=== PATIENT | female | born 1985 | race African-American/Black ===

== ENCOUNTER 2020-05-05 21:32 | Emergency (ER) | payer SELFPAY ==
[~2020-05-05 21:32] MED LIST: Iopamidol 370 76% 100 ML VIAL ONE
[2020-05-05] MEDS ORDERED: Ketorolac Tromethamine 30 MG/ML VIAL ONE (22:12)
[2020-05-05] MEDS ORDERED: Ondansetron PF 4 MG/2 ML Vial ONE (22:12)
[2020-05-05] MEDS ORDERED: Fentanyl 100 MCG/2 ML VIAL ONE (22:13)
[2020-05-05 22:19] LABS: Band 2 % (5-11); Hemoglobin 9.9 g/dL (12.0-16.0); Lymphocytes 21 % (21-51); MDiff Complete? YES; Mean Corpuscular HGB CONC 33.1 g/dL (32.0-36.0); Mean Corpuscular Hemoglobin 29.2 pg (27.0-31.0); Mean Corpuscular Volume 88.3 fL (78.0-98.0); Mean Platelet Volume 6.8 fL (7.4-10.4); Monocytes 17 % (0-10); Neutrophil 60 % (42-75); Platelet Count 248 thou/uL (130-400); Platelet Morphology Comment Appears Adequate; RBC Distribution Width 11.9 % (11.5-14.5)
[2020-05-05 22:27] LABS: BHCG - Serum Negative (NEGATIVE); Pregs Control Background? CLEAR/WHITE (CLR/WHITE); Pregs Control Bar Appear? YES (CONTROL BAR)
[2020-05-05 22:38] LABS: ALT (SGPT) Less than 7 U/L (8-55); AST (SGOT) 12 U/L (5-34); Albumin 3.8 g/dL (3.5-5.0); Alkaline Phosphatase 64 U/L (40-110); Anion Gap 10 mmol/L (10-20); BUN (Urea Nitrogen) 12 mg/dL (7.0-18.7); Bilirubin, Total 0.2 mg/dL (0.2-1.2); CK (CPK) 84 U/L (29-168); Calc. Creatinine Clearance 0 mL/min (70-130); Calcium 8.3 mg/dL (7.8-10.44); Carbon Dioxide 22 mmol/L (22-29); Chloride 104 mmol/L (98-107); Estimated GFR-MDRD 81; Globulin 3.5 g/dL (2.4-3.5); Glucose 102 mg/dL (70-105); Lipase 34 U/L (8-78); Potassium 3.2 mmol/L (3.5-5.1); Protein, Total 7.3 g/dL (6.0-8.3); Sodium 133 mmol/L (136-145)
--- NOTE | 2020-05-05 23:18 | CT ---
CT ABDOMEN AND PELVIS WITH IV CONTRAST 05/05/2020 CLINICAL INFORMATION: Right flank pain. COMPARISON: None. Technique: Multiple contiguous axial CT images are obtained through the abdomen and pelvis with IV contrast. Cor onal reformatted images are provided. FINDINGS: Lower Chest: Lung bases are clear. Vessels: Abdominal aorta is normal in caliber without evidence of an aortic dissection. Is still note is made of a circumaortic left renal vein. Abdomen: Portal vein:Patent Gallbladder: Within normal limits for CT imaging. Liver: within normal limits. Spleen: within normal limits. Pancreas: within normal limits. Adrenals: within normal limits. Kidneys: An 11 mm hypodense lesion is seen midportion right kidney which is difficult to characterize . This finding was present on study in 2005 and measured 8 mm. This statistically likely represents a renal cyst. Bowel: Small to moderate amount retained fecal material is seen throughout the colon. Loops of small bowel are normal in caliber. There is suggested mild thickening region of the gastric antrum. This could be related to gastritis or ulcer disease, this may be related to incomplete distention. Appendix: Not defined visualized due to multiple adjacent unopacified structures. Peritoneum/Retroperitoneum: Small amount of free fluid is seen in the pelvis. Abdominal Wall: within normal limits. Pelvis: Reproductive Organs: There is an irregular hypodense cystic appearing lesion with enhancing reveles david suring 19 mm seen in the right adnexa. This could be related to involuting cyst or possibly secondary to ruptured cyst as there is free fluid adjacent to this region as well as in the left adne xa and in the lower pelvis. Pelvis within normal limits. Bladder: within normal limits. Bones: No suspicious lytic or sclerotic osseous lesions are identified. Transitional vertebra is pres ent lumbosacral junction. IMPRESSION: 1. Small amount of free fluid in the pelvis. There is a hypodense lesion with irregular enhancing wal l seen in the right adnexa which could potentially represent involuting cyst/follicle versus rupture of a cyst or follicle. 2. Hypodense lesion right kidney difficult to characterize due to small size but statistically likely represents a cyst. 3. Small to moderate amount retained fecal material seen throughout the colon suggesting constipation . 4. Nonvisualization of the appendix due to multiple unopacified structures in the pelvis. Appendiciti s cannot be excluded based on this examination. 5. Suggested thickening in the region of the gastric antrum. This is probably attributable to incompl ete distention. However, if the patient has symptoms referrable to the epigastric region, follow-up upper GI versus endoscopy is suggested.
[2020-05-06 00:16] LABS: Bilirubin Negative (Negative); Blood, Urine Negative (Negative); Clarity Clear (Clear); Glucose, Urine (Dipstick) Normal (Negative); Leukocyte Negative Leu/uL (Negative); Nitrite Negative (Negative); Protein, Urine (Dipstick) Negative (Neg-Trace); Urobilinogen Normal mg/dL (Less than 2)
--- NOTE | 2020-05-09 14:53 | EKG ---
Test Reason : Blood Pressure : / mmHG Vent. Rate : 091 BPM Atrial Rate : 091 BPM P-R Int : 126 ms QRS Dur : 068 ms QT Int : 340 ms P-R-T Axes : 059 069 005 degrees QTc Int : 418 ms Normal sinus rhythm Cannot rule out Anterior infarct , age undetermined Abnormal ECG Confirmed by PETRA RAMOS, VIVIAN ([id number]), graphics editor CLAUDY SELBY ([id number]) on 05/09/2020 2:52:59 PM Referred By: Confirmed By:VIVIAN LAMBERT MD
== END 2020-05-06 00:31 | disposition home or self-care (01) ==
LOC: ERS 21:32
DX: R10.33 Periumbilical pain (principal); R10.13 Epigastric pain; J45.909 Unspecified asthma, uncomplicated
CPT/HCPCS: 36415; 74177; 80053; 81003; 82550; 83690; 84703; 85025; 93005; 96374; 96375; J1885; J2405; J3010; Q9967

== ENCOUNTER 2020-05-08 08:40 | Emergency (ER) | payer SELFPAY ==
[2020-05-08 09:10] LABS: #Monocytes 0.4 thou/uL (0.11-0.59); #Neutrophils 1.8 thou/uL (1.40-6.50); %Basophils 1.3 % (0.0-1.0); %Eosinophils 1.1 % (0.0-10.0); %Monocytes 12.5 % (0.0-10.0); %Neutrophils 54.1 % (42.0-75.0); Hemoglobin 10.8 g/dL (12.0-16.0); Mean Corpuscular HGB CONC 31.7 g/dL (32.0-36.0); Mean Corpuscular Hemoglobin 28.2 pg (27.0-31.0); Mean Platelet Volume 8.3 fL (7.4-10.4); Platelet Count 247 thou/uL (130-400); RBC Distribution Width 12.6 % (11.5-14.5); Red Blood Cell (RBC) Count 3.82 mill/uL (4.20-5.40); White Blood Cell (WBC) Count 3.3 thou/uL (4.8-10.8)
[2020-05-08] MEDS ORDERED: Ketorolac Tromethamine 30 MG/ML VIAL ONE (09:14)
[2020-05-08 09:19] LABS: BHCG - Serum Negative (NEGATIVE); Pregs Control Background? CLEAR/WHITE (CLR/WHITE); Pregs Control Bar Appear? YES (CONTROL BAR)
[2020-05-08 09:43] LABS: Bilirubin Negative (Negative); Blood, Urine Negative (Negative); Clarity Clear (Clear); Glucose, Urine (Dipstick) Normal (Negative); Leukocyte Negative Leu/uL (Negative); Nitrite Negative (Negative); Protein, Urine (Dipstick) Negative (Neg-Trace); Urobilinogen Normal mg/dL (Less than 2)
[2020-05-08 10:02] LABS: Albumin 3.5 g/dL (3.5-5.0)
[2020-05-08 10:03] LABS: Chloride 106 mmol/L (98-107); Potassium 4.1 mmol/L (3.5-5.1); Sodium 136 mmol/L (136-145)
[2020-05-08 10:04] LABS: Globulin 3.3 g/dL (2.4-3.5); Glucose 86 mg/dL (70-105); Protein, Total 6.8 g/dL (6.0-8.3)
[2020-05-08 10:06] LABS: Anion Gap 7 mmol/L (10-20); Bilirubin, Total 0.2 mg/dL (0.2-1.2); Carbon Dioxide 27 mmol/L (22-29)
[2020-05-08 10:07] LABS: Alkaline Phosphatase 54 U/L (40-110)
[2020-05-08 10:08] LABS: BUN (Urea Nitrogen) 10 mg/dL (7.0-18.7); Calc. Creatinine Clearance 0 mL/min (70-130); Estimated GFR-MDRD Greater than 90
[2020-05-08 10:09] LABS: AST (SGOT) 12 U/L (5-34)
[2020-05-08 10:10] LABS: ALT (SGPT) Less than 7 U/L (8-55)
--- NOTE | 2020-05-08 10:19 | ULT ---
US Pelvic Transvag History: Right pelvic pain Comparison: CT abdomen pelvis May 05, 2020 Findings: Real-time grayscale, color and spectral analysis of the pelvis was performed transvaginal a pproach. Uterus measures 6.2 x 3.4 x 3.2 cm. Both ovaries have adequate vascular flow. Crenulated right ovaria n corpus luteum. Small volume free fluid in the pelvis, resolving. Normal diaphragm volume bilaterally. Endometrial thickness is normal at 4 mm. Impression: Findings of a recent right corpus luteal cyst rupture with resolving free fluid in the pe lvis.
== END 2020-05-08 11:05 | disposition home or self-care (01) ==
LOC: ERS 08:40
DX: N83.201 Unspecified ovarian cyst, right side (principal); J45.909 Unspecified asthma, uncomplicated; Z79.899 Other long term (current) drug therapy
CPT/HCPCS: 36415; 76856; 80053; 81003; 84703; 85025; 96374; J1885

== ENCOUNTER 2020-08-13 18:35 | Emergency (ER) | payer SELFPAY ==
[2020-08-13] MEDS ORDERED: Silver Sulfadiazine 50 GM TUBE ONE (19:28)
[2020-08-13] MEDS ORDERED: HYDROcodone/Acetaminophen 5/325 mg Tablet ONE (19:28)
[2020-08-13] MEDS ORDERED: Ketorolac Tromethamine 30 MG/ML VIAL ONE (19:28)
== END 2020-08-13 20:06 | disposition home or self-care (01) ==
LOC: ERS 18:35
DX: T22.611A Corrosion of second degree of right forearm, initial encounter (principal); T24.602A Corrosion of second degree of unspecified site of left lower limb, except ankle and foot, initial encounter; T32.0 Corrosions involving less than 10% of body surface; J45.909 Unspecified asthma, uncomplicated
CPT/HCPCS: 16020; 96372; J1885

== ENCOUNTER 2020-11-17 09:00 | Emergency (ER) | payer SELFPAY ==
[2020-11-17 15:45] LABS: SARS-CoV-2 MS2 Positive; SARS-CoV-2 N Gene Negative; SARS-CoV-2 S Gene Negative; SARS-CoV-2 by NAA Not Detected (NotDetected); SARS-CoV-2 orf1ab Negative
== END 2020-11-17 09:35 | disposition home or self-care (01) ==
LOC: ERS 09:00
DX: Z20.828 Contact with and (suspected) exposure to other viral communicable diseases (principal); J45.909 Unspecified asthma, uncomplicated
CPT/HCPCS: 87635; 99283; U0003

== ENCOUNTER 2020-12-05 14:50 | Emergency (ER) | payer SELFPAY ==
[2020-12-05 20:53] LABS: SARS-CoV-2 PCR by NAA Not Detected (NotDetected)
== END 2020-12-05 15:04 | disposition home or self-care (01) ==
LOC: ERS 14:50
DX: Z20.822 Contact with and (suspected) exposure to COVID-19 (principal); J45.909 Unspecified asthma, uncomplicated
CPT/HCPCS: 87635; 99283; U0003; U0005

== ENCOUNTER 2020-12-28 15:28 | Emergency (ER) | payer SELFPAY ==
[2020-12-29 04:13] LABS: SARS-CoV-2 PCR by NAA Not Detected (NotDetected)
== END 2020-12-28 15:40 | disposition home or self-care (01) ==
LOC: ERS 15:28
DX: J02.9 Acute pharyngitis, unspecified (principal); Z20.822 Contact with and (suspected) exposure to COVID-19
CPT/HCPCS: 87635; 99284; U0003; U0005

== ENCOUNTER 2021-10-03 22:07 | Emergency (ER) | payer OTHER, SELFPAY ==
[2021-10-03] MEDS ORDERED: Lidocaine 1% (PF) 30 ML VIAL ONE (23:21)
[2021-10-03] MEDS ORDERED: Ketorolac Tromethamine 30 MG/ML VIAL ONE (23:59)
== END 2021-10-04 00:13 | disposition home or self-care (01) ==
LOC: ERS 22:07
DX: H60.01 Abscess of right external ear (principal)
CPT/HCPCS: 10060; 96372; J1885; J2001

== ENCOUNTER 2022-07-15 09:04 | Outpatient (CLI) | payer BC | END 2022-07-15 09:05 | disposition home or self-care (01) | LOC: BICMAMMO 09:04 | PROVIDERS: ATTEND Family Medicine | DX: N60.02 Solitary cyst of left breast (principal) | CPT/HCPCS: 77066; G0279 ==

== ENCOUNTER 2023-06-01 07:43 | Outpatient (CLI) | payer BC | END 2023-06-01 07:44 | disposition home or self-care (01) | LOC: ULT 07:43 | PROVIDERS: ATTEND Family Medicine | DX: R10.13 Epigastric pain (principal); K80.20 Calculus of gallbladder without cholecystitis without obstruction | CPT/HCPCS: 76700 ==